=== PATIENT | male | born 1945 | race Caucasian/White ===

== ENCOUNTER 2021-03-14 09:23 | Day surgery (SDC) | payer MEDICARE, OTHER ==
[2021-03-14] MEDS ORDERED: LIDOCAINE-MPF 1%, 5ML ONE (09:37)
[2021-03-14] MEDS ORDERED: HEPARIN 1,000 UNITS/ML, 10ML ONE (09:37)
[2021-03-14] MEDS ORDERED: MIDAZOLAM 1 MG/ML, 2ML ONE (09:37)
[2021-03-14] MEDS ORDERED: FENTANYL PF 100 MCG/2ML ONE (09:37)
[2021-03-14] MEDS ORDERED: VERAPAMIL 2.5 MG/ML, 2ML ONE (09:37)
[2021-03-14] MEDS ORDERED: TAMS-11 PO (10:13)
[2021-03-14] MEDS ORDERED: FINA5TAB4 PO (10:13)
[2021-03-14] MEDS ORDERED: METO25TA35 PO (10:13)
[2021-03-14] MEDS ORDERED: FURO40TA6 PO (10:13)
[2021-03-14] MEDS ORDERED: WARF2TAB99 PO (10:13)
[2021-03-14] MEDS ORDERED: POTA10TA PO (10:13)
[2021-03-14] MEDS ORDERED: CELE200C PO (10:13)
[2021-03-14] MEDS ORDERED: SODIUM CHLORIDE 0.9% 1,000 ML IV SCH ×2 (10:30→12:00)
[2021-03-14 11:10] LABS: MEAN CORPUSCULAR HEMOGLOBIN 32.5 pg (27.5-34.5); MEAN CORPUSCULAR HGB CONC 34.9 g/dL (33.2-36.2); MEAN PLATELET VOLUME 7.4 fL (7.4-10.4); PLATELET COUNT 111 x10^3/uL (130-400); RED CELL DISTRIBUTION WIDTH 15.9 % (9.4-14.8)
[2021-03-14 11:31] LABS: BASOS#(MANUAL) 0.07 x10^3/uL (0-0.1); BASOS% (MANUAL) 1 % (0-1); EOS#(MANUAL) 0.28 x10^3/uL (0.0-0.4); EOS% (MANUAL) 4 % (1-7); LYMPH#(MANUAL) 3.59 x10^3/uL (1-3.4); LYMPHS% (MANUAL) 52 % (22-44); MONOS#(MANUAL) 0.35 x10^3/uL (0.3-2.7); MONOS% (MANUAL) 5 % (2-9); SEG#(MANUAL) 2.62 x10^3/uL (1.8-6.8); SEGS% (MANUAL) 38 % (42-75)
[2021-03-14 11:32] LABS: <PLATELET ESTIMATE> DECREASED; <PLT MORPHOLOGY> NORMAL PLT MORPH; ROULEAUX 1+
[2021-03-14] MEDS ORDERED: PLEASE ENTER HEIGHT AND WEIGHT MC SCH (12:00)
== END 2021-03-14 13:52 | disposition home or self-care (01) ==
LOC: CACL 09:23
PROVIDERS: ATTEND Internal Medicine Cardiovascular Disease
DX: Z01.810 Encounter for preprocedural cardiovascular examination (principal); I35.0 Nonrheumatic aortic (valve) stenosis; I25.10 Atherosclerotic heart disease of native coronary artery without angina pectoris; I82.509 Chronic embolism and thrombosis of unspecified deep veins of unspecified lower extremity; D50.9 Iron deficiency anemia, unspecified; Z79.01 Long term (current) use of anticoagulants; Z79.899 Other long term (current) drug therapy; Z87.891 Personal history of nicotine dependence; Z88.0 Allergy status to penicillin
CPT/HCPCS: 36415; 85025; 85610; 93454; 99156; C1769; C1894; J1644; J2250; J3010; Q9967; 99157

== ENCOUNTER 2021-03-21 09:55 | Outpatient (CLI) | payer MEDICARE, OTHER ==
[~2021-03-21 09:55] MED LIST: CELE200C PO; FINA5TAB4 PO; FURO40TA6 PO; METO25TA35 PO; POTA10TA PO; TAMS-11 PO; WARF2TAB99 PO
[2021-03-21 11:44] LABS: CREATININE 1.98 mg/dL (0.7-1.3)
== END 2021-03-21 23:59 | disposition home or self-care (01) ==
LOC: CVU 09:55 → RAD 23:59
PROVIDERS: ATTEND Internal Medicine Cardiovascular Disease
DX: I65.23 Occlusion and stenosis of bilateral carotid arteries (principal); I71.2 Thoracic aortic aneurysm, without rupture; N40.0 Benign prostatic hyperplasia without lower urinary tract symptoms; I35.8 Other nonrheumatic aortic valve disorders
CPT/HCPCS: 36415; 71250; 74176; 82565; 93880